=== PATIENT | female | born 1985 | race American Indian/Alaskan Native ===

== ENCOUNTER 2017-03-06 14:53 | Emergency (ER) | payer SELFPAY ==
[2017-03-06 15:38] VITALS: BP 116/82
[2017-03-06 17:11] LABS: Bilirubin,Urine NEG (Negative); Blood,Urine NEG (Negative); Ketones,Urine NEG (Negative); Leukocyte Esterase,Urine NEG (Negative); Nitrite,Urine NEG (Negative); Protein,Urine <15 mg/dL mg/dL (Negative); RBC,Urine < 1.0 /HPF (0.0-6.0); Urobilinogen,Urine < 2.0 mg/dL (<2.0)
[2017-03-06] MEDS ORDERED: AUGMENTIN 875 MG PO ONE (18:42)
[2017-03-06] MEDS ORDERED: NORCO 5/325 PO ONE (18:42)
--- NOTE | 2017-03-06 18:47 | Emergency Department Report ---
ED ENT HPI - General Chief complaint: Earache Stated complaint: RIGHT EAR PAIN Time Seen by Provider: 03/06/17 18:30 Source: patient Mode of arrival: Ambulatory Limitations: No Limitations - History of Present Illness Initial comments: 32-year-old female past medical history none presents with complaint of bilateral earache times one month. Patient states that the skin on her ears is become dry and she has noticed some drainage from her right ear canal. Denies any fevers or chills hearing is intact denies swimming or any water in ear canal. MD complaint: ear pain Onset/Timin -: month(s) Location: R ear, L ear Severity: moderate Severity scale (0 -10): 5 Quality: aching Consistency: intermittent Improves with: none Worsens with: none - Related Data Previous Rx's Medication Instructions Recorded Last Taken Type Acetaminophen/Codeine [Tylenol 1 tab PO Q6H PRN #8 tab 03/06/17 Unknown Rx /Codeine # 3 tab] Amoxicillin/K Clav Tab [Augmentin 1 tab PO Q12HR #20 tab 03/06/17 Unknown Rx 875 mg] Ibuprofen [Motrin] 800 mg PO Q8HR PRN #25 tablet 03/06/17 Unknown Rx Neomy/Polymyx B/Hc (Otic) Soln 4 drops OTIC TID #1 bottle 03/06/17 Unknown Rx [Cortisporin (Otic) Soln] Allergies Allergy/AdvReac Type Severity Reaction Status Date / Time No Known Allergies Allergy Verified 03/06/17 15:30 ED Dental HPI - General Chief complaint: Earache Stated complaint: RIGHT EAR PAIN Time Seen by Provider: 03/06/17 18:30 Source: patient Mode of arrival: Ambulatory Limitations: No Limitations - Related Data Previous Rx's Medication Instructions Recorded Last Taken Type Acetaminophen/Codeine [Tylenol 1 tab PO Q6H PRN #8 tab 03/06/17 Unknown Rx /Codeine # 3 tab] Amoxicillin/K Clav Tab [Augmentin 1 tab PO Q12HR #20 tab 03/06/17 Unknown Rx 875 mg] Ibuprofen [Motrin] 800 mg PO Q8HR PRN #25 tablet 03/06/17 Unknown Rx Neomy/Polymyx B/Hc (Otic) Soln 4 drops OTIC TID #1 bottle 03/06/17 Unknown Rx [Cortisporin (Otic) Soln] Allergies Allergy/AdvReac Type Severity Reaction Status Date / Time No Known Allergies Allergy Verified 03/06/17 15:30 ED Review of Systems ROS: Stated complaint: RIGHT EAR PAIN Other details as noted in HPI Constitutional: denies: chills, fever Eyes: denies: eye pain, eye discharge, vision change ENT: ear pain. denies: throat pain Respiratory: denies: cough, shortness of breath, wheezing Cardiovascular: denies: chest pain, palpitations Endocrine: no symptoms reported Gastrointestinal: denies: abdominal pain, nausea, diarrhea Genitourinary: denies: urgency, dysuria, discharge Musculoskeletal: denies: back pain, joint swelling, arthralgia Skin: denies: rash, lesions Neurological: denies: headache, weakness, paresthesias Psychiatric: denies: anxiety, depression Hematological/Lymphatic: denies: easy bleeding, easy bruising ED Past Medical Hx - Past Medical History Previous Medical History?: No - Surgical History Past Surgical History?: No - Social History Smoking Status: Current Every Day Smoker Substance Use Type: Alcohol - Medications Home Medications: Home Medications Medication Instructions Recorded Confirmed Last Taken Type Acetaminophen/Codeine [Tylenol 1 tab PO Q6H PRN #8 tab 03/06/17 Unknown Rx /Codeine # 3 tab] Amoxicillin/K Clav Tab [Augmentin 1 tab PO Q12HR #20 tab 03/06/17 Unknown Rx 875 mg] Ibuprofen [Motrin] 800 mg PO Q8HR PRN #25 tablet 03/06/17 Unknown Rx Neomy/Polymyx B/Hc (Otic) Soln 4 drops OTIC TID #1 bottle 03/06/17 Unknown Rx [Cortisporin (Otic) Soln] ED Physical Exam - General Limitations: No Limitations General appearance: alert, in no apparent distress - Head Head exam: Present: atraumatic, normocephalic - Eye Eye exam: Present: normal appearance, PERRL, EOMI - ENT ENT exam: Present: mucous membranes moist - Expanded ENT Exam Expanded Ear exam: Present: other (evidence of bilateral seborrheic otitis externa) TM/Canal exam: Erythema: Right TM, Left TM, Bulging: Right TM, Left TM (both tympanic membranes are injected slight serous drainage from right external ear canal no mastoid tenderness bilaterally), Canal Discharge: Left TM (some serous drainage from right ear canal), Canal Tenderness: Right TM, Left TM Mouth exam: Present: normal external inspection Teeth exam: Present: normal inspection - Neck Neck exam: Present: normal inspection, full ROM - Respiratory Respiratory exam: Present: normal lung sounds bilaterally. Absent: respiratory distress - Cardiovascular Cardiovascular Exam: Present: regular rate, normal rhythm. Absent: systolic murmur, diastolic murmur, rubs, gallop - GI/Abdominal GI/Abdominal exam: Present: soft, normal bowel sounds - Extremities Exam Extremities exam: Present: normal inspection - Back Exam Back exam: Present: normal inspection - Neurological Exam Neurological exam: Present: alert, oriented X3 - Psychiatric Psychiatric exam: Present: normal affect, normal mood - Skin Skin exam: Present: warm, dry, intact, normal color. Absent: rash ED Course Vital Signs 03/06/17 15:31 Temperature 98.6 F Pulse Rate 93 H Respiratory 16 Rate Blood Pressure 116/82 O2 Sat by Pulse 100 Oximetry ED Medical Decision Making - Medical Decision Making A/P: Otitis externa (sebborheic vs infectious) 1-referral to ENT 2-empiric coverage with Augmentin and Corticosporin, Motrin, Tylenol 3 when necessary 3-I encouraged patient to make follow-up appointment with ENT or to return to the ED if her symptoms worsen or any fevers chills loss of hearing. Both tympanic membranes visualized and are intact no visible perforations Critical care attestation.: If time is entered above; I have spent that time in minutes in the direct care of this critically ill patient, excluding procedure time. ED Disposition Clinical Impression: Otitis externa Qualifiers: Noninfectious otitis externa type: eczematoid Chronicity: acute Laterality: bilateral Earache symptoms Qualifiers: Laterality: bilateral Qualified Code(s): H92.03 - Otalgia, bilateral Disposition: TO HOME OR SELFCARE Is pt being admited?: No Does the pt Need Aspirin: No Condition: Stable Instructions: Otitis Externa (ED), Otitis Media (ED) Prescriptions: Acetaminophen/Codeine [Tylenol /Codeine # 3 tab] 1 tab PO Q6H PRN #8 tab PRN Reason: Pain , Severe (7-10) Amoxicillin/K Clav Tab [Augmentin 875 mg] 1 tab PO Q12HR #20 tab Ibuprofen [Motrin] 800 mg PO Q8HR PRN #25 tablet PRN Reason: Pain Neomy/Polymyx B/Hc (Otic) Soln [Cortisporin (Otic) Soln] 4 drops OTIC TID #1 bottle Referrals: [facility] [Provider Group] - 3-5 Days [facility] [Provider Group] - 3-5 Days DUSTIN PAIGE MD [Staff Physician] - 3-5 Days Forms: Work/School Release Form(ED)
== END 2017-03-06 19:04 | disposition home or self-care (01) ==
LOC: ED 14:53
DX: H60.93 Unspecified otitis externa, bilateral (principal); F17.210 Nicotine dependence, cigarettes, uncomplicated
CPT/HCPCS: 81001; 81025; 99283

== ENCOUNTER 2018-03-03 12:20 | Emergency (ER) | payer BC ==
[2018-03-03 12:36] VITALS: BP 115/78
[2018-03-03] MEDS ORDERED: DUONEB *Not for PRN Use IH ONE (16:16)
[2018-03-03] MEDS ORDERED: DECADRON PO ONE (16:17)
--- NOTE | 2018-03-03 16:22 | Emergency Department Report ---
Chief Complaint: Upper Respiratory Infection Stated Complaint: CHEST PAIN Time Seen by Provider: 03/03/18 15:59 - HPI History of Present Illness: 33-year-old female presents to the emergency department with a 3 to four-day history of a cough, wheezing, sneezing, ear pain and some pain to the left side of the chest wall and/or ribs. The chest and/or ribs hurts her when she coughs, sneezes and with certain movements of her torso. She denies any past medical history except for ear infection that she had about 6 months ago. She does not appear to have a primary care physician. No recent travel or sick contacts at home. She is a tobacco smoker. - ROS Review of Systems: Positive for ear pain, coughing, sneezing, wheezing, chest wall/rib pain Negative for shortness of breath, fever, nausea, vomiting, back pain - Exam Vital Signs: Vital Signs 03/03/18 12:34 Temperature 98.3 F Pulse Rate 83 Respiratory 16 Rate Blood Pressure 115/78 O2 Sat by Pulse 99 Oximetry Physical Exam: There is mild wheezing throughout the chest but no tachypnea or accessory muscle use. No signs of any respiratory distress. Oropharynx is clear without tonsillar hypertrophy, erythema or exudates. Bilateral normal-appearing external ear canals and tympanic membranes. MSE screening note: Focused history and physical exam performed. Due to findings the following was ordered: Patient will have a 2 view chest x-ray. She will have a DuoNeb. She was given a dose of Decadron. ED Disposition for MSE Condition: Stable Referrals: PRIMARY CARE [Primary Care Provider] - 3-5 Days
--- NOTE | 2018-03-03 18:09 | XRay Report ---
FINAL REPORT EXAM: XR CHEST ROUTINE 2V HISTORY: chest wall pain TECHNIQUE: 2 view examination of the chest PRIORS: None FINDINGS: There is no visible pulmonary consolidation, pleural effusion, or pneumothorax. Cardiac silhouette size is normal without vascular congestion. No visible acute displaced fracture in the regional skeleton. IMPRESSION: No evidence of acute cardiopulmonary disease
--- NOTE | 2018-03-03 21:08 | Emergency Department Report ---
ED General Adult HPI - General Chief complaint: Upper Respiratory Infection Stated complaint: CHEST PAIN Time Seen by Provider: 03/03/18 15:59 Source: patient Mode of arrival: Ambulatory Limitations: No Limitations - History of Present Illness Severity scale (0 -10): 0 - Related Data Previous Rx's Medication Instructions Recorded Last Taken Type Acetaminophen/Codeine [Tylenol 1 tab PO Q6H PRN #8 tab 03/06/17 Unknown Rx /Codeine # 3 tab] Amoxicillin/K Clav Tab [Augmentin 1 tab PO Q12HR #20 tab 03/06/17 Unknown Rx 875 mg] Ibuprofen [Motrin] 800 mg PO Q8HR PRN #25 tablet 03/06/17 Unknown Rx Neomy/Polymyx B/Hc (Otic) Soln 4 drops OTIC TID #1 bottle 03/06/17 Unknown Rx [Cortisporin (Otic) Soln] Naproxen [Naprosyn] 500 mg PO Q12H #30 tablet 03/03/18 Unknown Rx Triamcinolone Acetonide 1 applicatio TP TID #15 cream..g. 03/03/18 Unknown Rx Allergies Allergy/AdvReac Type Severity Reaction Status Date / Time No Known Allergies Allergy Verified 03/06/17 15:30 ED Review of Systems ROS: Stated complaint: CHEST PAIN Other details as noted in HPI ED Past Medical Hx - Past Medical History Previous Medical History?: No - Surgical History Past Surgical History?: No - Social History Smoking Status: Current Every Day Smoker Substance Use Type: None - Medications Home Medications: Home Medications Medication Instructions Recorded Confirmed Last Taken Type Acetaminophen/Codeine [Tylenol 1 tab PO Q6H PRN #8 tab 03/06/17 Unknown Rx /Codeine # 3 tab] Amoxicillin/K Clav Tab [Augmentin 1 tab PO Q12HR #20 tab 03/06/17 Unknown Rx 875 mg] Ibuprofen [Motrin] 800 mg PO Q8HR PRN #25 tablet 03/06/17 Unknown Rx Neomy/Polymyx B/Hc (Otic) Soln 4 drops OTIC TID #1 bottle 03/06/17 Unknown Rx [Cortisporin (Otic) Soln] Naproxen [Naprosyn] 500 mg PO Q12H #30 tablet 03/03/18 Unknown Rx Triamcinolone Acetonide 1 applicatio TP TID #15 cream..g. 08/09/18 Unknown Rx ED Physical Exam - General Limitations: No Limitations ED Course Vital Signs 03/03/18 03/03/18 03/03/18 12:34 17:37 17:52 Temperature 98.3 F Pulse Rate 83 Pulse Rate [ 67 70 Anterior Bilateral Throughout] Respiratory 16 Rate Respiratory 18 18 Rate [Anterior Bilateral Throughout] Blood Pressure 115/78 O2 Sat by Pulse 99 Oximetry Critical care attestation.: If time is entered above; I have spent that time in minutes in the direct care of this critically ill patient, excluding procedure time. ED Disposition Clinical Impression: Costochondritis, acute Eczema of external ear Qualifiers: Laterality: bilateral Qualified Code(s): H60.543 - Acute eczematoid otitis externa, bilateral Disposition: - TO HOME OR SELFCARE Is pt being admited?: No Does the pt Need Aspirin: No Condition: Stable Instructions: Costochondritis (ED), Eczema (ED) Additional Instructions: These take pain medication as needed for pain. Please see his ointment/cream to the outer portion of the ears as you have eczema to your ears. Prescriptions: Naproxen [Naprosyn] 500 mg PO Q12H #30 tablet Triamcinolone Acetonide 1 applicatio TP TID #15 cream..g. Referrals: PRIMARY CARE, [Primary Care Provider] - 3-5 Days [facility] [Provider Group] - 3-5 Days Forms: Work/School Release Form(ED)
== END 2018-03-03 21:18 | disposition home or self-care (01) ==
LOC: ED 12:20
DX: M94.0 Chondrocostal junction syndrome [Tietze] (principal); H60.543 Acute eczematoid otitis externa, bilateral; F17.200 Nicotine dependence, unspecified, uncomplicated
CPT/HCPCS: 71046; 93005; 93010; 94640; 99283; J8540